=== PATIENT | female | born 1955 | race Caucasian/White ===

== ENCOUNTER → 2017-08-31 | Outpatient (CLI) | payer BC ==
--- NOTE | 2017-08-31 12:21 | DIAGNOSTIC IMAGING REPORT ---
THYROID ULTRASOUND CLINICAL HISTORY: Multiple thyroid nodules. COMPARISON STUDY: Thyroid ultrasound September 10, 2016 and ultrasound-guided fine needle aspiration of thyroid nodule October 25, 2016. TECHNIQUE: Sonography of the thyroid gland was performed. FINDINGS: The right thyroid lobe measures 6 x 2.1 x 2 cm and the left lobe measures 4.4 x 1.6 x 1.7 cm. Note is made of a 2 x 1.9 x 1.6 cm heterogeneous mixed echogenicity nodule within the midpole of the right thyroid lobe. Allowing for measurement variability, this is similar to exam of September 10, 2016. This nodule was previously biopsied. A 1.4 cm right lower pole nodule is similar to prior exam. A few left lobe nodules are also unchanged. IMPRESSION: Multiple thyroid nodules, as described above. No significant change since exam of September 10, 2016 when allowing for measurement variability. Electronically signed by: Mervin Molina M.D. 08/31/2017 12:19 PM Dictated Date/Time: 08/31/2017 12:15 PM
== END | disposition home or self-care (01) ==
LOC: C.ULTRBC 10:42
PROVIDERS: ATTEND Internal Medicine Endocrinology, Diabetes & Metabolism
DX: E04.2 Nontoxic multinodular goiter (principal)